=== PATIENT | female | born 1995 | race Caucasian/White ===

== ENCOUNTER 2017-06-29 12:16 | Emergency (ER) | payer OTHER ==
[~2017-06-29] VITALS: Ht 162.6 cm; Wt 94.1 kg
[2017-06-29] MEDS ORDERED: IBUPROFEN 600MG TABLET PO ONE (13:00)
[2017-06-29] MEDS ORDERED: TETANUS, DIPHTHERIA, PERTUSSIS VAC/PF 0.5ML (>7YR OLD) IM ONE (13:00)
[2017-06-29 13:31] VITALS: BP 135/92
== END 2017-06-29 13:50 | disposition home or self-care (01) ==
LOC: ER 12:42
DX: S01.81XA Laceration without foreign body of other part of head, initial encounter (principal); W22.8XXA Striking against or struck by other objects, initial encounter; Y93.01 Activity, walking, marching and hiking; Y92.89 Other specified places as the place of occurrence of the external cause; Y99.8 Other external cause status; Z98.890 Other specified postprocedural states
CPT/HCPCS: 12011; 81025; 90471; 90715; 99283; X7700; Z7610; 12001